=== PATIENT | female | born 1950 | race Caucasian/White ===

== ENCOUNTER 2016-07-11 06:48 | Inpatient (IN) | payer OTHER ==
--- NOTE | 2016-07-09 11:04 | GHP ---
[f rep st] PREOP HISTORY AND PHYSICAL DATE OF ADMISSION: 07/11/2016 PROBLEM: Severe left hip degenerative arthritis. HISTORY OF PRESENT ILLNESS: The patient is a 65-year-old female who will be admitted for a left total hip arthroplasty with Dr. Chacko at [facility] on July 11, 2016. The patient initially saw Dr. Jatinder Watkins in early June for consideration of a left total hip arthroplasty via the anterior approach. Because of her truncal obesity, Dr. Watkins referred the patient to Dr. Chacko for a posterior approach. The patient has had progressive and worsening pain of the left hip ever since a horse accident at the age of 14. She injured it 4 years ago when she smashed the hip into a pipe buffer. In the past 2 years, it has gotten even worse, and her activities have become significantly limited. She uses a cane for ambulation. She uses ibuprofen several times a day with minimal improvement. She has tried and failed physical therapy as well as the oral anti-inflammatories. Because of her progressive pain and recalcitrant response to conservative therapies, she has elected to proceed with a left total hip arthroplasty, posterior approach. PAST MEDICAL HISTORY: Pertinent for type 2 diabetes, insulin-dependent, treated hypertension, and treated hypercholesterolemia. No history of CAD, NE, PE, DVT, or MRSA infections. MEDICATIONS: Advil 800, glimepiride 8 mg, glycocyamine 1000, Lantus SoloSTAR 100 units/mL and she takes 48 units b.i.d., lisinopril 20 mg/ hydrochlorothiazide 12.5 mg, metformin 1000 mg b.i.d., Pepcid 20 mg b.i.d., pravastatin 20 mg on odd days and 40 mg on even days, multivitamin. MEDICATION ALLERGIES: Avandia which causes amsxemsi-ub-puxjpi edema, Crestor causes myalgias. SOCIAL HISTORY: The patient is single. She lives alone. 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 No history of tobacco use. Occasional alcohol use. FAMILY HISTORY: Pertinent for arthritis, diabetes, coronary artery disease, hypertension, and cancer. PHYSICAL EXAMINATION: GENERAL: She is a healthy-appearing 65-year-old female with obesity. VITALS: Height 5 feet 9 inches tall, weight 223 pounds, BMI 32.9. HEENT: Head is normocephalic, atraumatic. Eyes are PERRLA. Conjunctivae and sclerae are clear. Mouth: She has good oral hygiene without any loose teeth. HEART: Regular rate and rhythm without murmurs, gallops, or rubs. LUNGS: Clear. EXTREMITIES: Pertinent findings are limited to the patient's left hip. She has full hip extension, 90 degrees of flexion, 10 degrees of external rotation, 0 degrees of internal rotation, and 20 degrees of abduction. DIAGNOSTIC IMAGING: Recent x-rays taken of the patient's left hip show severe wnno-gb-lzce arthritis with peripheral osteophyte formation and increased subchondral sclerosis. She is a few millimeters short on the left side. IMPRESSION: On admission: 1. Severe left hip degenerative arthritis. 2. Right hip advanced degenerative arthritis, which is not symptomatic. 3. Treated type 2 diabetes with insulin. 4. Treated hypercholesterolemia and hypertension. 5. Obesity. PLAN: The plan will be for the patient to undergo a left total hip arthroplasty with Dr. Chacko at the [facility] on July 11, 2016. The surgery has been described to the patient including the risks, benefits, and expectations. She understands the risk of sciatic nerve injury, infection, leg length discrepancy, or hip dislocation. All her questions have been answered, and she consents to surgery here in the office today. /[id number]/MODL MTDD
[~2016-07-11 06:48] MED LIST: ACETAMINOPHEN 325 MG TAB PO ONE; CEFAZOLIN 2 GM/DEXTR 100 ML IV ONE; CHLORHEXIDINE GLUC HIBICLENS 118 ML BTL TP ONE; DEXAMETHASONE 4 MG/ML VIAL IVP ONE; FAMOTIDINE 20 MG TAB PO ONE; POVIDONE-IODINE 20 ML in SODIUM CL IRRIG SOLUTION 500 ML IRR ONE; ROPI/epiNEPH/KETOROLAC JOINT COCKTAIL IU ONE; TRANEXAMIC ACID 2,000 MG in NS 100 ML IV ONE
[2016-07-11] MEDS ORDERED: ceFAZolin 1 GM/5 ML SYR ONE (07:23)
[2016-07-11] MEDS ORDERED: POLYMYXIN B SULFATE 500,000 UNIT/10 ML SYR IRR ONE (07:45)
[2016-07-11] MEDS ORDERED: fentaNYL 100 MCG/2 ML INJ ONE ×2 (08:20→12:12)
[2016-07-11] MEDS ORDERED: PROPOFOL/EMULSION 500 MG/50 ML BOTTLE IV ONE (08:21)
[2016-07-11] MEDS ORDERED: PROPOFOL 200 MG/20 ML VIAL ONE (08:21)
[2016-07-11] MEDS ORDERED: DEXAMETHASONE 4 MG/ML VIAL ONE (08:29)
[2016-07-11] MEDS ORDERED: ACETAMINOPHEN 325 MG TAB ONE (08:30)
[2016-07-11] MEDS ORDERED: CEFAZOLIN 2 GM/DEXTROSE/100 ML BAG IV ONE (08:30)
[2016-07-11] MEDS ORDERED: FAMOTIDINE 20 MG TAB ONE (08:30)
[2016-07-11] MEDS ORDERED: LIDOCAINE 1% 5 ML SDV ID PRN (09:12)
[2016-07-11] MEDS ORDERED: LR 1,000 ML IV ONE (09:12)
[2016-07-11] MEDS ORDERED: MIDAZOLAM 2 MG/2 ML VIAL ONE (09:22)
[2016-07-11] MEDS ORDERED: ONDANSETRON 4 MG/2 ML VIAL ONE (11:07)
--- NOTE | 2016-07-11 11:27 | POSTOPPROG ---
Post Op Note Date of Operation: 07/11/16 Surgeon: Magdi Chacko Sdv Pilot/Navigator/Dds Operator: Junie/Harmeet Anesthesiologist: Stas Anesthesia: IV Sedation, Spinal Post-op Diagnosis: L hip arthritis Procedure: L DORIAN Inf/Abcess present in the surg proc area at time of surgery?: No EBL: 100-500
[2016-07-11] MEDS ORDERED: TEMAZEPAM 15 MG CAP PO PRN (11:37)
[2016-07-11] MEDS ORDERED: LACTULOSE 20 GM/30 ML UDCUP PO PRN (11:37)
[2016-07-11] MEDS ORDERED: ONDANSETRON 4 MG/2 ML VIAL IVP PRN (11:37)
[2016-07-11] MEDS ORDERED: KETOROLAC 30 MG/1 ML SDV IVP PRN (11:37)
[2016-07-11] MEDS ORDERED: POLYETHYLENE GLYCOL 3350 17 GM PKT PO PRN (11:37)
[2016-07-11] MEDS ORDERED: MAGNESIUM HYDROXIDE 30 ML UDCUP PO PRN (11:37)
[2016-07-11] MEDS ORDERED: PROMETHAZINE HCL 25 MG/ML INJ IVP PRN (11:37)
[2016-07-11] MEDS ORDERED: PHARMACY PAIN CONSULT 1 EA MISC PRN (11:37)
[2016-07-11] MEDS ORDERED: oxyCODONE IR 5 MG TAB PO PRN (11:37)
[2016-07-11] MEDS ORDERED: diphenhydrAMINE 25 MG CAP PO PRN (11:37)
[2016-07-11] MEDS ORDERED: METOCLOPRAMIDE 10 MG/2 ML VIAL IVP PRN (11:37)
[2016-07-11] MEDS ORDERED: DIPHENOXYLATE/ATROPINE LOMOTIL 1 TAB PO PRN (11:37)
[2016-07-11] MEDS ORDERED: PROMETHAZINE HCL 25 MG SUPPR PR PRN (11:37)
[2016-07-11] MEDS ORDERED: CYCLOBENZAPRINE 10 MG TAB PO PRN (11:37)
[2016-07-11] MEDS ORDERED: ONDANSETRON DISINTEGRATING 4 MG TAB PO PRN (11:37)
[2016-07-11] MEDS ORDERED: NS 500 ML IV PRN (11:37)
[2016-07-11] MEDS ORDERED: BISACODYL 10 MG SUPP PR PRN (11:37)
[2016-07-11] MEDS ORDERED: LR 1,000 ML IV SCH (12:00)
[2016-07-11] MEDS ORDERED: HYDROCODONE/APAP 5/325 TAB ONE (12:12)
[2016-07-11] MEDS ORDERED: HYDROmorphONE/DILAUDID 1 MG/ML SYR ONE (12:12)
--- NOTE | 2016-07-11 12:41 | GOP ---
[f rep st] OPERATIVE REPORT DATE OF OPERATION: 07/11/2016 SURGEON: Magdi Chacko MD BOOM OPERATOR: Aldo Zaman CFA; and VANE Blanco ANESTHESIA: Combination of Marcaine spinal and IV sedation. ANESTHESIOLOGIST: Grace Mcclelland MD. PREOPERATIVE DIAGNOSIS: Left hip severe degenerative arthritis. POSTOPERATIVE DIAGNOSIS: Left hip severe degenerative arthritis. PROCEDURE PERFORMED: Left total hip arthroplasty, ceramic femoral head on highly cross-linked polye thylene cup liner. FINDINGS: ESTIMATED BLOOD LOSS: About 400 mL. DESCRIPTION OF PROCEDURE: The patient was given 2 g of IV Ancef preoperatively within 60 minutes of surgery. She also received IV tranexamic acid at a dose of 20 mg/kg. She was placed on the operat ing room table and given spinal anesthesia with Marcaine by Dr. Mcclelland. She was then placed supine and given IV sedation. A Vazquez catheter was not used. She wore a USMAN stocking and SCD on the nonop erative leg. She was rolled to the right lateral decubitus position. The position was secured with the pegboard table attachment. Her height was 5 feet 9 inches. Weight 223 pounds. BMI 32.9. She had quite a bit of truncal and abdominal obesity. That made positioning difficult. The position w as secured with the pegboard table attachment. An axillary roll was used and all pressure points we re carefully padded. I was careful to lock her pelvis in a rigid vertical position. Her perineum w as isolated with plastic adhesive drapes. The left hip and left lower extremity were prepped with C hloraPrep. They were draped free using sterile sheets, stockinette, and Ioban plastic drapes. The World Health Organization time-out was performed to verify the correct surgical side and the correct patient identity. The [place] time-out was also performed. I made a 5-6 inch straight oblique posterolateral hip skin incision. Subcutaneous tissues were milton ply divided, and hemostasis was obtained using electrocautery. She had approximately a 2 inch layer of subcutaneous fat. The fascia rina was identified and split along the axis of its fibers. I the n curved posteriorly and proximally, and split the fascia of the gluteus laurel and bluntly split t he muscle fibers in line with our orientation. The Charnley self-retaining retractor was inserted. Her sciatic nerve was located, partially exposed, and protected throughout the procedure. The exte rnal rotators and the posterior hip capsule were divided as separate layers at the base of the femor al neck, tagged, and reflected posteriorly. A smooth 8-inch Steinmann pin was inserted vertically i nto the ilium, superior to the acetabulum. An 8-inch drill bit was inserted vertically into the gre ater trochanter and parallel to the first pin. The distance between the 2 was measured for leg karla th reference. Her femoral head was dislocated posteriorly. Severe degenerative changes were presen t on the femoral head. Her femoral neck was osteotomized at the appropriate level and inclination. I was careful to preserve her capsule. The remnant of her badly damaged labrum was excised. She danielle d significant posterior and superior periacetabular osteophytes. These were trimmed with a rongeur. I prepared the femur first. This allowed me to senior web engineer the amount of natural femoral neck anteversion . This in turn allowed me to later determine the correct amount of cup anteversion. She had 30-40 degrees of natural femoral neck anteversion. Her canal was open laterally with a box chisel. I jaswant obregon broached sequentially up to a size 5. A size 5 broach was used as a trial stem. I was careful to lateralize adequately. I was using the Kwadwo Accolate 2 stem. Appropriate retractors were inserted to expose the acetabulum. The acetabulum was reamed sequential ly up to 51 mm. I selected a 52 mm Carver Tritanium solid-backed hemispherical shell. This was ta pped securely into place in the proper degree of inclination anteversion. I used the transverse yesica tabular ligament and other acetabular bony landmarks to help me properly orient the cup. Shell fixa tion was very tight and I did not think supplemental screw fixation was necessary. I inserted a scr ew-in metal dome hole plug. The hip was reduced. I took an intraoperative cross-table AP pelvis x- ray. This demonstrated good sizing of the femoral component. The acetabulum was properly positione d. With a -4 mm neck head component on, the leg length was excellent. I concluded that the size 5 Accolate 2 stem with a -4 mm neck length, a 32 mm head with a flush trial liner gave me the proper c ombination of appropriate length and good anterior and posterior stability. The flush or 0 degree Carver X3 highly cross-linked polyethylene liner was inserted and tapped secu rely into place. I chose the Carver Accolate 2 stem and size 5 with standard offset. This was ins erted press-fit and was a tight fit. I did one final trial reduction and confirmed that the -4 mm n katarzyna length with a 32 mm head was the proper combination. The Kwadwo Biolox Delta ceramic head was tapped securely onto the clean trunnion. Her acetabulum was irrigated and cleaned. The hip was red uced one final time. She had excellent anterior and posterior stability and appropriate length. Be cause she had so much anteversion on her femoral component, I was careful to place just a small amou nt of anteversion on the acetabulum. 40 mL of the joint anesthetic cocktail was injected into the capsule, the deep musculature, and the subcutaneous tissues around the skin edges. The joint was thoroughly irrigated one final time with a dilute Betadine solution. Her sciatic nerve was reinspected and looked unharmed. The external ro tators and the posterior capsule were repaired in separate layers with #2 FiberWire sutures through drill holes in the greater trochanter. This provided a very strong posterior capsular and external rotator repair. Her fascia rina was repaired first with a couple of [id number] #2 FiberWire bernal tures followed by a running #2 barbed Ethicon Stratafix PDO suture. The subcutaneous tissues were c losed with a running 0 barbed Ethicon Stratafix Monoderm suture. The skin was closed with a running 3-0 barbed Ethicon Stratafix Monoderm subcuticular suture. The skin edges were reapproximated and sealed with Dermabond glue. The wound was covered with a strip of Telfa and everything was held in place with a piece of clear plastic Tegaderm. A long-leg USMAN stocking and SCD were applied to her left lower extremity. She wore a stocking and S CD on the opposite leg during the procedure. An abduction pillow was placed between her knees. She was awakened from anesthesia and rolled to the supine position on her [facility]. She was eulalia en to PACU in satisfactory condition. There were no intraoperative complications. INSTRUMENT COUNT: The sponge and needle count were correct on 2 occasions. IMPLANTS: I used a Kwadwo Tritanium hemispherical press-fit solid-backed acetabular shell with an outside diameter of 52 mm. The liner was a Kwadwo X-3 0 degree highly cross-linked liner with an i nside diameter of 32 mm. The femoral component was a standard offset Carver Accolate 2 stem and si ze 5 and press-fit. The femoral head was a Kwadwo Biolox Delta ceramic head with a -4 mm neck karla th and a 32 mm outside diameter. Aldo Zaman and Nrobert Ga acted as surgical assistants. Their assistance was a rikki carpenter. /[id number]/MODL
[2016-07-11] MEDS: traMADol 50 MG TAB PO PRN ×2 (13:18→19:32)
[2016-07-11] MEDS: ACETAMINOPHEN 325 MG TAB PO SCH ×2 (14:34→17:34)
[2016-07-11] MEDS: ceFAZolin 2 GM/DEXTROSE 100 ML IV SCH (17:34)
[2016-07-11] MEDS: TRANEXAMIC ACID 650 MG TAB PO SCH (17:35)
[2016-07-11] MEDS: metFORMIN HCL 500 MG TAB PO SCH (17:35)
[2016-07-11] MEDS ORDERED: NON-FORMULARY NEW DRUG (Metformin Hcl [Glucophage 1000 Mg] 1,000 MG) PO SCH (18:00)
[2016-07-11] MEDS ORDERED: PRAVASTATIN SODIUM 20 MG TAB PO SCH (21:00)
[2016-07-11] MEDS ORDERED: GLIMEPIRIDE 2 MG TAB PO SCH (21:00)
[2016-07-11] MEDS ORDERED: GLIMEPIRIDE 8 MG PO SCH (21:00)
[2016-07-11] MEDS: FAMOTIDINE 20 MG TAB PO SCH (21:32)
[2016-07-11] MEDS: SENNOSIDES/DOCUSATE SODIUM TAB PO SCH (21:34)
[2016-07-11] MEDS: INSULIN GLARGINE 100 UNITS/ML SYRINGE SC SCH (21:40)
[2016-07-11] MEDS: ASPIRIN 325 MG TAB PO SCH (22:57)
[2016-07-12] MEDS: ceFAZolin 2 GM/DEXTROSE 100 ML IV SCH (00:33)
[2016-07-12] MEDS: TRANEXAMIC ACID 650 MG TAB PO SCH ×2 (00:34→08:26)
[2016-07-12] MEDS: ACETAMINOPHEN 325 MG TAB PO SCH ×3 (00:34→12:58)
[2016-07-12 05:42] LABS: HEMATOCRIT 32.8 % (38.0-47.0); HEMOGLOBIN 11.2 g/dL (12.6-16.3)
--- NOTE | 2016-07-12 07:30 | SOAPPROG ---
SOAP Progress Note Assessment/Plan: Assessment: Afebrile. Awake and alert. Mild pain. Has been walking in l[place]. H/H is good. Sciatic nerve intact. Dsg is dry. Films look good. Plan:PT today. DC later today when cleared by PT. 07/12/16 07:29 Objective: Vital Signs Temp Pulse Resp BP Pulse Ox 36.7 C 75 16 135/66 H 95 07/12/16 04:15 07/12/16 04:15 07/12/16 04:15 07/12/16 04:15 07/12/16 04:15 Laboratory Results 07/12/16 05:19 07/11/16 07/12/16 07/13/16 05:59 05:59 05:59 Intake Total 2100 Output Total 1500 Balance 600 ICD10 Worksheet Patient Problems: Problems Problem Status Onset Osteoarthritis of left hip Acute
--- NOTE | 2016-07-12 07:30 | PDIAF ---
- Diagnosis Diagnosis: left hip OA Code Status: Full Code - Medication Management Discharge Medications: Medications to Continue on Transfer Glimepiride [Amaryl] 8 mg PO HS 07/03/16 [Last Taken 07/10/16 22:30] Glucosamine Sulfate [Glucosamine Sulfate 500 MG (*)] 500 mg PO DAILY 07/03/16 [ Last Taken 07/07/16] Ibuprofen [Motrin (*)] 800 mg PO TID PRN 07/03/16 [Last Taken 07/07/16] Insulin Glargine [Lantus 100 UNITS/ML (*)] 48 units SC BID 07/03/16 [Last Taken 07/11/16 05:45 24U] Lisinopril/Hctz 20/12.5MG [Zestoretic/Prinzide 20/12.5MG (*)] 1 ea PO DAILY [Last Taken 07/10/16 07:00] Multivitamins [Multivitamin (*)] 1 each PO DAILY 07/03/16 [Last Taken 07/07/16] Pravastatin Sodium 20 mg PO HS 07/03/16 [Last Taken 07/08/16 21:00] metFORMIN HCL [Glucophage 1000 mg] 1,000 mg PO BIDMEAL 07/03/16 [Last Taken 21:00] Acetaminophen [Tylenol 325mg (*)] 650 mg PO Q6HRS #0 tab 07/12/16 [Last Taken Unknown] Aspirin [Aspirin 325 mg (*)] 325 mg PO DAILY #21 tab 07/12/16 [Last Taken Unknown] Ferrous Sulfate [Slow Fe 140 MG (*)] 140 mg PO DAILY #30 tab.er 07/12/16 [Last Taken Unknown] Ondansetron Odt [Zofran Odt 4 mg (*)] 4 mg PO Q4HRS PRN #0 tab 07/12/16 [Last Taken Unknown] oxyCODONE IR [Oxycodone Ir (*)] 5 - 10 mg PO Q3HRS PRN #0 tab 07/12/16 [Last Taken Unknown] traMADol [Ultram 50 mg (*)] 50 mg PO Q6HRS PRN #0 tab 07/12/16 [Last Taken Unknown] Discharge Medications: Refer to the Discharge Home Medication list for PRN reason. PICC Care - Routine: N/A - Orders Services needed: Home Care, Physical Therapy Home Care Face to Face: I certify that this patient was under my care and that I had the required rnra-no-wofg encounter meeting the encounter requirements on the discharge day. My findings support the fact that the patient is homebound as defined in CMS Chapter 7 Medicare Benefits Manual 30.1.1, The condition of the patient is such that there exists a normal inability to leave home and consequently, leaving home would require a considerable and taxing effort. Diet Recommendation: no restrictions on diet Diet Texture: Regular Texture Diet Vazquez: Not applicable Ben Stockings Discontinue Date: 1 week Wound Care Instructions: keep clean and dry. You may shower. Activity/Weight Bearing Restrictions: 50% weight bearing on the left x 3 weeks. - Follow Up Care Current Providers and Referrals: Irena Mann MD [Primary Care Provider] - Magdi Chacko MD [Medical Doctor] - 08/02/16
--- NOTE | 2016-07-12 08:22 | GDS ---
[f rep st] DISCHARGE SUMMARY ADMISSION DIAGNOSIS: Left hip severe degenerative arthritis. DISCHARGE DIAGNOSIS: Left hip severe degenerative arthritis. OPERATION PERFORMED: 07/11/2016, a left total hip arthroplasty, ceramic femoral head on highly cros s-linked polyethylene cup liner. POSTOPERATIVE COMPLICATIONS: None. CONDITION ON DISCHARGE: Improved. DESCRIPTION OF HOSPITAL COURSE: The patient was admitted to the hospital on the morning of surgery. Her admission CBC, electrolytes, BUN, and creatinine were all normal. The same day, under a combi nation of Marcaine, spinal anesthesia, and IV sedation, she underwent a left total hip arthroplasty. Postoperatively, she was treated with multimodal DVT prophylaxis, including aspirin and early mobi lization. On the first postoperative day, her hemoglobin and hematocrit were 11.2 and 32.8. She wa s seen by Physical Therapy, and made good progress with ambulation. There were no postoperative uri nation problems. By the time of discharge, she was independent walking with a walker. She will be 50% weightbearing for the first 3 weeks. DISPOSITION: The patient was discharged to her home in [place]. She will have home physical thera py there. Continue aspirin 325 mg p.o. daily for 21 days. Use an abduction pillow in bed for 3 wee ks. She has prescriptions for oxycodone and tramadol for pain control. I will see her back in the office on 08/02/2016. If there any problems, she is to call me at the office. /[id number]/MODL
[2016-07-12] MEDS: FAMOTIDINE 20 MG TAB PO SCH (08:26)
[2016-07-12] MEDS: ASPIRIN 325 MG TAB PO SCH (08:26)
[2016-07-12] MEDS: SENNOSIDES/DOCUSATE SODIUM TAB PO SCH (08:26)
[2016-07-12] MEDS: traMADol 50 MG TAB PO PRN ×2 (08:26→15:51)
[2016-07-12] MEDS: metFORMIN HCL 500 MG TAB PO SCH (08:26)
[2016-07-12] MEDS: INSULIN GLARGINE 100 UNITS/ML SYRINGE SC SCH (08:32)
[2016-07-12] MEDS ORDERED: LISINOPRIL/HCTZ 20/12.5MG 1 EA TAB PO SCH (09:00)
[2016-07-12] MEDS ORDERED: FERROUS SULFATE 140 MG TAB.ER PO SCH (09:00)
[2016-07-12] MEDS ORDERED: MULTIVITAMINS 1 EACH TAB PO SCH (09:00)
[2016-07-12 09:23] VITALS: O2SAT 92
[2016-07-12 11:51] VITALS: BP 120/50; PULSE 87; RESP 16; TEMP 98.7
== END 2016-07-12 16:30 | disposition home health service (06) | DRG 470 ==
LOC: F3N 06:48
PROVIDERS: ADMIT Orthopaedic Surgery; ATTEND Orthopaedic Surgery
PROC: 0SRB04Z Replacement of Left Hip Joint with Ceramic on Polyethylene Synthetic Substitute, Open Approach (ICD-10-PCS; principal; 2016-07-11 09:15)
DX: M16.12 Unilateral primary osteoarthritis, left hip (principal); I50.9 Heart failure, unspecified; E11.9 Type 2 diabetes mellitus without complications; K21.9 Gastro-esophageal reflux disease without esophagitis; E78.5 Hyperlipidemia, unspecified; Z79.84 Long term (current) use of oral hypoglycemic drugs
CPT/HCPCS: 97116-GP; 97161-GP; 97165-GO; 97535-GO; G8978-GP-CJ; G8979-GP-CI; G8980-GP-CI; G8987-GO-CI; G8988-GO-CI; G8989-GO-CI; J0171; J0690; J1100; J1170; J1815; J1885; J2250; J2405; J2704; J2795; J3010

== ENCOUNTER 2017-06-23 17:38 | Emergency (ER) | payer OTHER ==
[2017-06-23 17:41] VITALS: BP 147/92
--- NOTE | 2017-06-23 17:47 | EDPHY ---
HPI/HX/ROS/PE/MDM Narrative: CHIEF COMPLAINT: Hip pain HPI: This patient is a 66 year old female s/p left total hip arthroplasty 07/11/[address] Chacko presents with left hip pain. She had an excellent post- operative course and has not felt any pain in the past. 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 She sat to start an IV this evening and when she tried to stand, she was suddenly unable to put weight on her left leg due to choi. She did not feel any kind of tear or popping sensation. If she does not put weight on the area, the pain resolves. She is able to tolerate weight-bearing if she puts her weight on her heel with her toes flexed up. She denies any recent trauma or illness. She has no further complaints at this time. REVIEW OF SYSTEMS: Aside from elements discussed in the HPI, a comprehensive 10-point review of systems was reviewed and is negative. PMH: Diabetes mellitus type 1, GERD, Hypertension, Concussions x3, s/p left total hip arthroplasty, Left ankle surgery SOCIAL HISTORY: Lives in [place]. Employed. PCP Dr. Mann. PHYSICAL EXAM: General:Patient is alert, in no acute distress. ENT:Eyes are normal to inspection. ENT inspection normal. Neck: Normal inspection. Full range of motion. Respiratory:No respiratory distress. Breath sounds normal bilaterally. Cardiovascular: Regular rate and rhythm. Strong peripheral pulses. Normal cap refill. Abdomen:The abdomen is nontender to palpation. There are no peritoneal signs. There are normal bowel sounds. Back: Normal to inspection. No tenderness to palpation. Skin: Normal color. No rash. Warm and dry. Extremities: Normal appearance. Full range of motion without pain. Neuro: Oriented x3. Normal motor function. Normal sensory function. ED Course: 66 y/o female s/p left total hip arthroplasty presents with sudden onset left hip pain with weight-bearing. Patient has full range of motion without pain while lying down. Plan for x-ray to r/o acute osseous abnormalities. 18:02 Hip x-ray reviewed. No fracture or dislocation noted. Discussed imaging results with the patient. Pending radiologist read. She declines pain medication at this time. 18:[address] Mckeon, radiologist. He confirms the patient's hip x- ray is normal. Patient now able to bear weight on affected leg. She is comfortable with plan for discharge home and follow-up with Dr. Chacko. She declines any medication. - Data Points Imaging: Discussed imaging studies w/ yardage caller Radiologist, I viewed and interpreted images myself General Time Seen by Provider: 06/23/17 17:44 Initial Vital Signs: Initial Vital Signs Temperature (C) 36.6 C 06/23/17 17:39 Heart Rate 88 06/23/17 17:39 Blood Pressure 147/92 H 06/23/17 17:39 O2 Sat (%) 95 06/23/17 17:39 O2 Delivery Mode Room Air Allergies/Adverse Reactions: rosiglitazone maleate [From Avandia] Allergy (Severe, Verified 07/21/11 21:18) CHF rosuvastatin calcium [From Crestor] Allergy (Severe, Verified 07/21/11 21:18) severe muscle weakness powdered gloves Allergy (Intermediate, Uncoded 10/30/10 10:52) itching, reddened hands Home Medications: Medication Instructions Recorded Glimepiride [Amaryl] 8 mg PO HS 07/03/16 Glucosamine Sulfate [Glucosamine 500 mg PO DAILY 07/03/16 Sulfate 500 MG (*)] Ibuprofen [Motrin (*)] 800 mg PO TID PRN 07/03/16 Insulin Glargine [Lantus 100 48 units SC BID 07/03/16 UNITS/ML (*)] Lisinopril/Hctz 20/12.5MG 1 ea PO DAILY 07/03/16 [Zestoretic/Prinzide 20/12.5MG (*)] Multivitamins [Multivitamin (*)] 1 each PO DAILY 07/03/16 Pravastatin Sodium 20 mg PO HS 07/03/16 metFORMIN HCL [Glucophage 1000 mg] 1,000 mg PO BIDMEAL 07/03/16 Acetaminophen [Tylenol 325mg (*)] 650 mg PO Q6HRS #0 tab 07/12/16 Aspirin [Aspirin 325 mg (*)] 325 mg PO DAILY #21 tab 07/12/16 Ferrous Sulfate [Slow Fe 140 MG 140 mg PO DAILY #30 tab.er 07/12/16 (*)] Ondansetron Odt [Zofran Odt 4 mg 4 mg PO Q4HRS PRN #0 tab 07/12/16 (*)] oxyCODONE IR [Oxycodone Ir (*)] 5 - 10 mg PO Q3HRS PRN #0 tab 07/12/16 traMADol [Ultram 50 mg (*)] 50 mg PO Q6HRS PRN #0 tab 07/12/16 Departure - Departure Disposition: Home, Routine, Self-Care Clinical Impression: Left hip pain Condition: Good Instructions: Hip Pain (ED) Additional Instructions: 1. Follow up with Dr. Chacko this week for further evaluation. 2. Return to the emergency department for worsening pain, inability to walk, or other worsening of condition or further concerns. Referrals: Magdi Chacko MD [Medical Doctor] - As per Instructions Report Scribed for: Iraj Pereira Report Scribed by: Janie Gomez Date of Report: 06/23/17 Time of Report: 17:46 Physician Review and Approval Statement: Portions of this note were transcribed by an ED scribe. I personally performed the history, physical exam, and medical decision making; and confirm the accuracy of the information in the transcribed note.
== END 2017-06-23 19:05 | disposition home or self-care (01) ==
DX: M25.552 Pain in left hip (principal); I10 Essential (primary) hypertension; E10.9 Type 1 diabetes mellitus without complications; Z79.82 Long term (current) use of aspirin; Z96.642 Presence of left artificial hip joint

== ENCOUNTER → 2017-12-17 | Outpatient (CLI) | payer OTHER | LOC: FIMAGING 14:39 | PROVIDERS: ATTEND Family Medicine | DX: N63.11 Unspecified lump in the right breast, upper outer quadrant (principal); R22.31 Localized swelling, mass and lump, right upper limb ==